=== PATIENT | female | born 1965 | race Caucasian/White ===

== ENCOUNTER 2022-05-08 16:24 | Emergency (ER) | payer OTHER ==
[~2022-05-08] VITALS: Ht 165.1 cm; Wt 71.2 kg
== END 2022-05-08 19:11 | disposition home or self-care (01) ==
LOC: ER 16:24
DX: M67.431 Ganglion, right wrist (principal)
CPT/HCPCS: 73110; 93971; 99284-25

== ENCOUNTER 2024-10-14 08:06 | Day surgery (SDC) | payer OTHER ==
[~2024-10-14] VITALS: Ht 165.1 cm; Wt 74.1 kg
[~2024-10-14 08:06] MED LIST: Balanced Salt Epinephrine Irrigation Solution 500 mL IR SCH; Lidocaine HCl/Pf 1% 5 ML VIAL XX SCH; Moxifloxacin HCL 0.5 MG/0.1 ML 0.4MLSYR RIGHTEYE SCH; PHENYLEPHRINE\\TROPICAMIDE\\TETRACAINE OPHTHALMIC DILATING SOLN RIGHTEYE PRN; Povidone-Iodine 450 DROP/30 ML Solution ONE; Povidone-Iodine 450 DROP/30 ML Solution RIGHTEYE SCH; Tetracaine HCl/Pf 0.5% Opth Soln 4 ml ONE; Triamcinolone Inj Susp 40 MG / ML 1ML Vial INJ SCH; Triamcinolone Inj Susp 40 MG / ML 1ML Vial ONE
[2024-10-14] MEDS ORDERED: Diazepam 5 MG Tab ONE (08:38)
--- NOTE | 2024-10-14 08:51 | NUR ---
10/14/24 0851 Tonya Dan AT 0847 MALET AT 0811
[2024-10-14] MEDS ORDERED: Diazepam 2 MG Tab ONE (08:52)
[2024-10-14 10:03] VITALS: BP 124/64
== END 2024-10-14 09:59 | disposition home or self-care (01) ==
LOC: ORSCSDS 08:06
PROVIDERS: Ophthalmology
PROC: 08RJ3JZ Replacement of Right Lens with Synthetic Substitute, Percutaneous Approach (ICD-10-PCS; principal; 2024-10-14 09:30)
DX: H25.811 Combined forms of age-related cataract, right eye (principal); K21.9 Gastro-esophageal reflux disease without esophagitis
CPT/HCPCS: A9270; J3301; V2632

== ENCOUNTER 2024-10-22 11:15 | Day surgery (SDC) | payer OTHER ==
[~2024-10-22] VITALS: Ht 165.1 cm; Wt 76.3 kg
[~2024-10-22 11:15] MED LIST changes: +Moxifloxacin HCL 0.5 MG/0.1 ML 0.4MLSYR LEFTEYE SCH; -Moxifloxacin HCL 0.5 MG/0.1 ML 0.4MLSYR RIGHTEYE SCH; +PHENYLEPHRINE\\TROPICAMIDE\\TETRACAINE OPHTHALMIC DILATING SOLN LEFTEYE PRN; -PHENYLEPHRINE\\TROPICAMIDE\\TETRACAINE OPHTHALMIC DILATING SOLN RIGHTEYE PRN; +Povidone-Iodine 450 DROP/30 ML Solution LEFTEYE SCH; -Povidone-Iodine 450 DROP/30 ML Solution RIGHTEYE SCH
[2024-10-22] MEDS ORDERED: Diazepam 5 MG Tab ONE (12:11)
[2024-10-22] MEDS ORDERED: Diazepam 2 MG Tab ONE (12:11)
[2024-10-22 13:12] VITALS: BP 141/76
== END 2024-10-22 13:26 | disposition home or self-care (01) ==
LOC: ORSCSDS 11:15
PROVIDERS: Ophthalmology
PROC: 08RK3JZ Replacement of Left Lens with Synthetic Substitute, Percutaneous Approach (ICD-10-PCS; principal; 2024-10-22 13:30)
DX: H25.812 Combined forms of age-related cataract, left eye (principal); Z96.1 Presence of intraocular lens; Z79.899 Other long term (current) drug therapy
CPT/HCPCS: A9270; J3301; V2632

== ENCOUNTER 2025-02-21 16:34 | Inpatient (IN) | payer OTHER ==
[~2025-02-21] VITALS: Ht 165.1 cm; Wt 79.0 kg
[2025-02-21] MEDS ORDERED: Mag Hydrox/AL Hydrox/Simeth 30 ML UDC PO ONE (17:25)
[2025-02-21] MEDS ORDERED: Ketorolac Tromethamine 15mg Vial IV ONE (17:25)
[2025-02-21] MEDS ORDERED: Lidocaine 2% Viscous Soln 15 ML UDC PO ONE (17:25)
[2025-02-21 17:53] LABS: BASOPHILS ABSOLUTE AUTO 0.04 K/mm3 (0.00-0.23); BASOPHILS PERCENT AUTO 0 % (0-2); EOSINOPHILS PERCENT AUTO 1 % (0-6); Hematocrit 37.8 % (33.0-51.0); Hemoglobin 13.2 g/dL (11.5-16.0); IMMATURE GRAN ABSOLUTE AUTO 0.04 K/mm3 (0.00-0.10); IMMATURE GRAN PERCENT AUTO 0 % (0-1); LYMPHOCYTES ABSOLUTE AUTO 2.18 K/mm3 (0.84-5.20); LYMPHOCYTES PERCENT AUTO 23 % (21-46); MONOCYTES ABSOLUTE AUTO 0.72 K/mm3 (0.16-1.47); MONOCYTES PERCENT AUTO 8 % (4-13); Mean Corpuscular HGB 28.9 pg (26.0-34.0); Mean Corpuscular HGB Conc 34.9 g/dL (31.5-36.5); Mean Corpuscular Volume 83 fL (80-100); Mean Platelet Volume 12.8 fL (9.1-12.4); NEUTROPHILS ABSOLUTE AUTO 6.47 K/mm3 (1.96-9.15); NEUTROPHILS PERCENT AUTO 68 % (41-73); Platelet Count 223 K/mm3 (150-400); RDW Coefficient Variation 13.3 % (11.7-14.2); RDW Standard Deviation 39.9 fL (35.1-46.3); Red Blood Cell Count 4.56 M/mm3 (3.80-5.20); White Blood Cell Count 9.55 K/mm3 (4.00-11.30)
[2025-02-21 18:00] LABS: Albumin, Blood 4.1 g/dL (3.4-5.0); Albumin/Globulin Ratio 1.3 (0.8-1.8); Bilirubin, Total 0.3 mg/dL (0.1-1.0); Bun/Creatinine Ratio 30.7 (12.0-20.0); Creatinine, Blood 0.68 mg/dL (0.40-1.00); Globulin, Blood 3.2 g/dL (2.2-4.0); Magnesium, Blood 2.1 mg/dL (1.6-2.4); Potassium, Blood 3.3 mmol/L (3.5-5.5); Total Protein, Blood 7.3 g/dL (6.4-8.2)
[2025-02-21 18:21] LABS: Influenza A, PCR NEGATIVE (NEGATIVE); Influenza B, PCR NEGATIVE (NEGATIVE); Resp Syncytial Virus, PCR NEGATIVE (NEGATIVE); SARS-Cov-2 (COVID-19) PCR, MMC NEGATIVE (NEGATIVE)
[2025-02-21] MEDS ORDERED: Aspirin 81 MG Chew ONE (18:56)
[2025-02-21 19:29] LABS: International Normalized Ratio 0.94; Prothrombin Time Results 10.1 Sec (9.7-11.5)
[2025-02-21] MEDS ORDERED: Heparin Sodium,Porcine/0.5 NS 500 ML IV SCH (20:55)
[2025-02-21] MEDS ORDERED: Dose Adjust by Pharmacy XX STA (21:38)
[2025-02-21] MEDS ORDERED: Nitroglycerin 0.4 MG SUBL SL PRN (22:20)
[2025-02-21] MEDS ORDERED: FentaNYL Citrate 50 MCG/ML 2 ML Injection IV PRN (22:20)
[2025-02-21] MEDS ORDERED: NS 1,000 ML IV ONE (22:25)
[2025-02-21] MEDS ORDERED: Ondansetron HCl 2 MG / ML 2ML Vial IV PRN (22:25)
[2025-02-21] MEDS ORDERED: Potassium Chloride 40 MEQ in NS 250 ML IV ONE (22:30)
[2025-02-21] MEDS ORDERED: Melatonin 5 MG Tablet PO ONE (22:50)
[2025-02-21] MEDS ORDERED: Atorvastatin 40 MG Tab PO SCH (23:00)
[2025-02-21] MEDS ORDERED: Clopidogrel Bisulfate 300 MG TABLET PO ONE (23:00)
[2025-02-22] VITALS (15 sets, daily range): BP systolic 90–132; BP diastolic 53–94
[2025-02-22] MEDS ORDERED: Atorvastatin 40 MG Tab PO SCH (03:22)
[2025-02-22] MEDS ORDERED: NS 1,000 ML IV ONE ×3 (03:25→12:05)
[2025-02-22] MEDS ORDERED: Clopidogrel Bisulfate 300 MG TABLET PO ONE (03:25)
[2025-02-22 04:21] LABS: BASOPHILS ABSOLUTE AUTO 0.03 K/mm3 (0.00-0.23); BASOPHILS PERCENT AUTO 0 % (0-2); EOSINOPHILS ABSOLUTE AUTO 0.19 K/mm3 (0.00-0.68); EOSINOPHILS PERCENT AUTO 3 % (0-6); Hematocrit 39.3 % (33.0-51.0); Hemoglobin 13.3 g/dL (11.5-16.0); IMMATURE GRAN ABSOLUTE AUTO 0.02 K/mm3 (0.00-0.10); IMMATURE GRAN PERCENT AUTO 0 % (0-1); LYMPHOCYTES ABSOLUTE AUTO 2.37 K/mm3 (0.84-5.20); LYMPHOCYTES PERCENT AUTO 33 % (21-46); MONOCYTES ABSOLUTE AUTO 0.67 K/mm3 (0.16-1.47); MONOCYTES PERCENT AUTO 9 % (4-13); Mean Corpuscular HGB 28.7 pg (26.0-34.0); Mean Corpuscular HGB Conc 33.8 g/dL (31.5-36.5); Mean Corpuscular Volume 85 fL (80-100); Mean Platelet Volume 12.8 fL (9.1-12.4); NEUTROPHILS ABSOLUTE AUTO 3.89 K/mm3 (1.96-9.15); NEUTROPHILS PERCENT AUTO 54 % (41-73); Platelet Count 196 K/mm3 (150-400); RDW Coefficient Variation 13.6 % (11.7-14.2); RDW Standard Deviation 42.1 fL (35.1-46.3); Red Blood Cell Count 4.63 M/mm3 (3.80-5.20); White Blood Cell Count 7.17 K/mm3 (4.00-11.30)
[2025-02-22 04:51] LABS: Albumin, Blood 3.9 g/dL (3.4-5.0); Albumin/Globulin Ratio 1.2 (0.8-1.8); Bilirubin, Total 0.3 mg/dL (0.1-1.0); Bun/Creatinine Ratio 33.8 (12.0-20.0); Calcium, Blood 8.8 mg/dL (8.5-10.1); Creatinine, Blood 0.74 mg/dL (0.40-1.00); Globulin, Blood 3.3 g/dL (2.2-4.0); Potassium, Blood 3.9 mmol/L (3.5-5.5); Total Protein, Blood 7.2 g/dL (6.4-8.2)
[2025-02-22] MEDS ORDERED: Dose Adjust by Pharmacy XX STA ×2 (04:59→10:47)
--- NOTE | 2025-02-22 05:09 | NUR ---
pt arrived to unit in stable condition, heparin gtt infusing per md and pharmacy order, denies cp/sob, no physcial pain. ambulated well from stretcher to bed. po medication and ivf initiated, no concerns at this time. 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 npo since midnight. vss, rrr and unlabored, remains on room air, a&ox4.
[2025-02-22] MEDS ORDERED: Aspirin 81 MG Chew PO SCH (09:00)
[2025-02-22] MEDS ORDERED: Clopidogrel Bisulfate 75 MG Tab PO SCH (09:00)
--- NOTE | 2025-02-22 09:20 | NUR ---
am note this rn assumed care 0700. vital signs stable. tele sinus rhythm 70s. patient is alert and oriented x4. neuro is intact. perrla. patient is independent in the room and able to make needs known. patient denies chest pain/pressure, pain or shortness of breath. see shift assessment for further detials. Dreiling in to see patient at 0750 and discussed angio. patient agrees and verbalizes understanding. plan for angio this afternoon.
--- NOTE | 2025-02-22 10:43 | NUR ---
update md díaz in to see patient and discussed plan of care
[2025-02-22] MEDS ORDERED: Verapamil HCL 2.5 MG/ML 2ML Injection ONE (12:03)
[2025-02-22] MEDS ORDERED: Heparin Sodium 1000 Units/ML 10ML MDV ONE (12:04)
[2025-02-22] MEDS ORDERED: Nitroglycerin 2 MG/20 ML BTL ONE (12:04)
[2025-02-22] MEDS ORDERED: NS 250 ML IV ONE (12:04)
[2025-02-22] MEDS ORDERED: FentaNYL Citrate 50 MCG/ML 2 ML Injection ONE (12:11)
[2025-02-22] MEDS ORDERED: Midazolam HCl 1MG / ML 2ML Vial ONE (12:11)
--- NOTE | 2025-02-22 12:27 | NUR ---
update patient left for angio at 1219. heparin stopped and this rn called to notify pharmacy.
--- NOTE | 2025-02-22 13:38 | NUR ---
UPDATE patient back to room from angio. patient has a right radial access site that is nontender soft not bleeding with tr band in place with 10cc of air in it. vital signs stable. md ck at bedside going over the results of the angio.
--- NOTE | 2025-02-22 17:42 | NUR ---
update-tr band tr band fully deflated at 1742. site is soft nontender no hematoma or bleeding.
--- NOTE | 2025-02-22 17:46 | NUR ---
shift summary see previous notes. vitals remain stable. tele sinus rhythm 60s. This rn spoke with Md Yang and plan for patient to take baby aspirin 81mg po daily, follow up with cardiology and repeat echo in a few months. patient and patient daughter, monique, verbalized understanding. this rn updated md díaz after speaking with md yang. plan for patient to discharge home tomorrow. no acute changes.
[2025-02-23 03:56] VITALS: BP 109/60
[2025-02-23 04:42] LABS: Bun/Creatinine Ratio 24.4 (12.0-20.0); Creatinine, Blood 0.94 mg/dL (0.40-1.00); Potassium, Blood 3.8 mmol/L (3.5-5.5)
--- NOTE | 2025-02-23 05:15 | NUR ---
PT IS ALERT AND ORIENTED X4, VERBALIZES WANTING TO REST THROUGHOUT SHIFT, WAS ABLE TO SLEEP. COMPLIANT WITH CARE AND EAGER TO LEARN, ASKS QUESTIONS AND IS PLEASANT THROUGHOUT SHIFT. R RADIAL SITE WDL, C/D/I WITH TRANSPARENT DRESSING IN PLACE. NO SIGNS OF HEMATOMA, BLEEDING, OR OTHER COMPLICATIONS PRESENT THROUGHOUT SHIFT ASSESSMENT AND REASSMENTS. PALPABLE PULSES IN BUE AND BLE. REMAINS ON RA THROUGHOUT SHIFT, SR WHILE AWAKE, SB WHILE ASLEEP. VSS, RRR AND UNLABORED, DENIES PHYSICAL PAIN, C/P, SOB, AND HAS ADEQUATE URINE OUTPUT. ARMBOARD REMAINS IN PLACE OVERNIGHT PER PT REQUEST TO REMIND HER TO NOT UTILIZE THAT ARM. NO CONCERNS AT THIS TIME.
[2025-02-23 08:06] VITALS: BP 103/76
[2025-02-23] MEDS ORDERED: Lisinopril 5 MG Tab PO SCH (09:00)
[2025-02-23] MEDS ORDERED: Metoprolol Succinate 25 MG TABCR PO SCH (09:00)
[2025-02-23] MEDS ORDERED: Empagliflozin 10 MG TAB PO SCH (09:00)
[2025-02-23] MEDS ORDERED: Aspirin 81 MG Chew PO SCH (09:00)
[2025-02-23 11:28] VITALS: BP 148/85
[2025-02-23] MEDS ORDERED: ASPI81CH PO (12:35)
[2025-02-23] MEDS ORDERED: LIPITOR80 MG PO (12:36)
[2025-02-23 13:50] VITALS: BP 122/84
--- NOTE | 2025-02-23 14:27 | NUR ---
DISCHARGE SUMMARY PT A&OX4. VSS. PT DENIES PAIN. R RADIAL SITE NO BLEEDING/HEMATOMA/OOZING. ARM BOARD IN PLACE. PT EDUCATED ON R RADIAL POST OP INSTRUCTIONS. DISCHARGE PAPERWORK REVIEWED W/ PT. MEDICATIONS REVIEWED W/ PT, FAXED TO [facility] PER PT REQUEST. IV'S REMOVED. TELEMETRY REMOVED. PT DRESSED INDEPENDENTLY. DAUGHTER ARRIVED TO ROOM. PT WHEELED TO PRIVATE VEHICLE.
== END 2025-02-23 15:22 | disposition home or self-care (01) | DRG 282 ==
LOC: ER 16:34 → ERHOLD 21:07 → PCU 22:18
PROVIDERS: Family Medicine; Student in an Organized Health Care Education/Training Program; ADMIT Internal Medicine
DX: I21.4 Non-ST elevation (NSTEMI) myocardial infarction (principal); Z66 Do not resuscitate; K21.9 Gastro-esophageal reflux disease without esophagitis; E87.6 Hypokalemia; I11.9 Hypertensive heart disease without heart failure; Z87.19 Personal history of other diseases of the digestive system; Z98.41 Cataract extraction status, right eye
CPT/HCPCS: 0241U; 36415; 36416; 71045; 76937; 80048; 80053; 82947; 83690; 83735; 83880; 84484; 85025; 85520; 85610; 85730; 93005; 93010; 93458; 96374; 99152; 99153; 99285-25; A9270; C1769; C1887; C1894; C8929; G0378; J1644; J1885; J2250; J3010; J3480; J7030; J7050; Q9957; Q9967